=== PATIENT | male | born 1960 | race Two or more races ===

== ENCOUNTER 2018-04-21 09:36 | Emergency (ER) | payer OTHER ==
[2018-04-21 09:47] VITALS: BP 129/79; PULSE 87; TEMP 98.2; BMI 29.0
--- NOTE | 2018-04-21 10:32 | PDOC ---
Suture Removal/Wound Check HPI - History of Present Illness Chief Complaint: Suture/Staple Removal(Here) Stated Complaint: SUTURE REMOVAL Time Seen by Provider: 04/21/18 10:05 History Source: Yes: Patient Exam Limitations: Yes: No Limitations [facility] Date of Last ED visit: 04/13/18 - Previous ED Treatment Type of procedure performed on last visit: Yes: Laceration Repair Past History - Past Medical History Allergies/Adverse Reactions: Allergies Allergy/AdvReac Type Severity Reaction Status Date / Time lamotrigine [From Lamictal] AdvReac Verified 04/21/18 09:44 Home Medications: Ambulatory Orders Quetiapine Fumarate [Seroquel] 100 mg PO HS 08/31/15 Ibuprofen 800 mg PO TID PRN #20 tablet 04/13/18 Sulfamethoxazole/Trimethoprim [Bactrim Ds -] 1 tab PO BID 5 Days #10 tablet Cancer: Yes (Probable Colon Ca) COPD: No Psychiatric Problems: Yes (mood disorder/anxiety) - Suicide/Smoking/Psychosocial Hx Smoking History: Current every day smoker Have you smoked in the past 12 months: Yes Number of Cigarettes Smoked Daily: 3 Information on smoking cessation initiated: No Hx Alcohol Use: No Drug/Substance Use Hx: No Substance Use Type: Marijuana *Physical Exam - Vital Signs Last Vital Signs Temp Pulse Resp BP Pulse Ox 98.2 F 87 16 129/79 98 04/21/18 09:44 04/21/18 09:44 04/21/18 09:44 04/21/18 09:44 04/21/18 09:44 Medical Decision Making - Medical Decision Making A/P: 8 sutures removed from left eyebrow lac. No wound dehiscence. Wound healed well. Patient will be discharged to home. *DC/Admit/Observation/Transfer Diagnosis at time of Disposition: Visit for suture removal - Discharge Dispostion Disposition: HOME Condition at time of disposition: Good - Referrals - Patient Instructions Printed Discharge Instructions: DI for Suture Removal Additional Instructions: -Keep wound clean and dry - Post Discharge Activity
== END 2018-04-21 10:37 | disposition home or self-care (01) ==
LOC: JERFT 09:36 → JER 09:36 → JERFT 10:37
DX: Z48.817 Encounter for surgical aftercare following surgery on the skin and subcutaneous tissue (principal); Z48.02 Encounter for removal of sutures
CPT/HCPCS: 99281-25